=== PATIENT | female | born 1965 | race Caucasian/White ===

== ENCOUNTER 2019-09-24 01:01 | Day surgery (SDC) | payer OTHER, BC, SELFPAY ==
[2019-09-23 10:04] VITALS: BMI 21.2
--- NOTE | 2019-09-23 17:37 | WPDANESEPP ---
Anes - Eval Pre Procedure Procedure: Operation Date: 09/24/19 07:30 Proposed Procedures p Screening Colonoscopy - Pradeep Brar MD Date/Time: 09/23/19 17:37 Pre Op Diagnosis: neoplasm screening Patient Data Age: 54 Gender: F Height: 1.63 m Weight: 56 kg Allergies Allergy/AdvReac Type Severity Reaction Status Date / Time No Known Allergies Allergy NONE Unverified 09/23/19 10:03 Home Medications Medication Instructions Recorded Confirmed Type multivitamin [Daily Multiple] 1 tablet PO DAILY 09/23/19 09/23/19 History Patient hx anesthesia problems: none Family hx anesthesia problems: none PMFSH Past Medical History Medical History (Updated 08/22/19 @ 13:23 by Sherman Washington MD) Abnormal fasting glucose Bilateral carpal tunnel syndrome (~2007) Hx of migraine headaches Migraine headache Surgical History Surgical History (Updated 07/18/19 @ 13:33 by Cora Ceron MA) deliv NOS-unsp (~1994) deliv NOS-unsp (~1998) H/O: hysterectomy (~2015) Family History Family History (Updated 07/18/19 @ 13:35 by Cora Ceron MA) Mother Hypertension Father Liver cancer Grandparent Cerebrovascular accident Social History Social History (Updated 07/18/19 @ 13:40 by Cora Ceron MA) Smoking status: Never smoker Second hand tobacco smoke exposure: No Alcohol intake: current Substance use: never Substance use type: does not use Exam Day of Procedure 09/23/19 17:37
[2019-09-24 06:35] VITALS: BP 130/72; PULSE 69; RESP 16; TEMP 36.7; O2SAT 100
[2019-09-24] MEDS: LACTATED RINGERS 1,000 ML 150 ML IV CONT (06:45)
--- NOTE | 2019-09-24 07:03 | P.PNAN_ITS ---
Anes - Eval Final PreProcedure Day of Procedure 09/24/19 07:03 Patient weight: normal Heart: regular rate and rhythm Lungs: clear to auscultation Airway: Mallampati scale class 1 Neurological: alert and oriented Last oral intake: >/= 8 hours ASA classification: I Emergent: no Anesthetic plan: proceed Anesthesia type and monitoring: general GIVS and standard monitoring Informed Consent: The patient's anesthetic plan and its attendant risks and guerita efits were discussed with the patient/family/POA. Questions were solicited and answers provided to the satisfaction of the patient/family/POA.
--- NOTE | 2019-09-24 07:34 | PM.HPGS ---
History of Present Illness History of Present Illness Consent: Risks, benefits, and alternatives have been discussed and questions answered. Patient agrees to proceed with procedure. Chief complaint: neoplasm screening Narrative: Blanca Castro is a 54 year old female here for positive cologuard, never had a colonoscopy Review of Systems Constitutional: Constitutional: Denies headache(s) and Denies weakness Eyes: Eyes: Denies blurry vision ENT: Reports Normal hearing present, Denies headache(s) and Denies neck pain Cardiovascular: Cardiovascular: Denies chest pain and Denies dyspnea Respiratory: Respiratory: Denies dyspnea Gastrointestinal: Gastrointestinal: Reports no additional gastrointestinal complaints Genitourinary: Genitourinary: Denies dysuria Musculoskeletal: Musculoskeletal: Denies neck pain Integumentary/Breasts: Skin/Breast: Denies dry skin Neurologic: Reports Normal hearing present, Denies headache(s) and Denies weakness Psychiatric: Psychiatric: Denies anxiety Endocrine: Endocrine: Denies change in body appearance Hematologic/Lymphatic: Hematologic/Lymphatic: Denies easy bleeding Allergic/Immunologic: Allergic/Immunologic: Denies urticaria PMFSH Past Medical History Medical History (Updated 09/24/19 @ 07:35 by Pradeep Brar MD) Abnormal fasting glucose Bilateral carpal tunnel syndrome (~2007) Hx of migraine headaches Migraine headache Positive colorectal cancer screening using Cologuard test Surgical History Surgical History (Updated 07/18/19 @ 13:33 by Cora Ceron MA) deliv NOS-unsp (~1994) deliv NOS-unsp (~1998) H/O: hysterectomy (~2015) Family History Family History (Updated 07/18/19 @ 13:35 by Cora Ceron MA) Mother Hypertension Father Liver cancer Grandparent Cerebrovascular accident Social History Social History (Updated 07/18/19 @ 13:40 by Cora Ceron MA) Smoking status: Never smoker Second hand tobacco smoke exposure: No Alcohol intake: current Substance use: never Substance use type: does not use Meds Home Medications and Allergies Home Medications Medication Instructions Recorded Confirmed Type multivitamin [Daily Multiple] 1 tablet PO DAILY 09/23/19 09/24/19 History Allergies Allergy/AdvReac Type Severity Reaction Status Date / Time No Known Allergies Allergy NONE Unverified 09/24/19 06:34 Vital Signs Vital Signs - 24 hr 09/24/19 06:35 Temperature 98.0 F Pulse Rate 69 Respiratory Rate 16 Blood Pressure 130/72 Pulse Oximetry 100 Exam Const: General: comfortable and no acute distress HENMT: General nose exam: Normal nares present Eyes: General: appearance normal, both eyes and all related structures Neck: Neck: no JVD Resp: Auscultation: clear to auscultation bilaterally Cardio: Rate: regular rate Rhythm: regular rhythm GI: Inspection: non-distended GI Palp: Yes Soft to palpation Skin: General skin exam: normal color Neuro: General: gait normal Speech: normal speech Extrem: General: normal to inspection Psych: Mental Status: mental status grossly normal Assessment and Plan Assessment and plan (1) Positive colorectal cancer screening using Cologuard test: Code(s): R19.5 - Other fecal abnormalities Status: Acute Assessment and Plan: will proceed with colonoscopy
[2019-09-24 08:02] VITALS: BP 95/62; PULSE 73; RESP 16; O2SAT 100
[2019-09-24 08:12] VITALS: BP 98/64; PULSE 68; RESP 16; O2SAT 100
[2019-09-24 08:22] VITALS: BP 115/71; PULSE 66; RESP 16; O2SAT 100
== END 2019-09-24 08:43 | disposition home or self-care (01) ==
PROVIDERS: PCP Family Medicine; Visit Provider Internal Medicine Gastroenterology
PROC: 0DJD8ZZ Inspection of Lower Intestinal Tract, Via Natural or Artificial Opening Endoscopic (ICD-10-PCS; CPT 45378; principal; 2019-09-24 07:30)
DX: Z12.11 Encounter for screening for malignant neoplasm of colon (principal); R19.5 Other fecal abnormalities; K63.5 Polyp of colon; K64.8 Other hemorrhoids
CPT/HCPCS: 45380; 88305; J2704; J7120

== ENCOUNTER 2021-04-28 07:42 | Outpatient (CLI) | payer OTHER, SELFPAY ==
--- NOTE | ~2021-04-28 | DEXA_ITS ---
Bone Density Report Name: Blanca Castro Age: 55 Sex: Female Ethnicity: White Date of : 1965 Indication: postmenopausal; height loss; hysterectomy; Referring Provider: eRbeka Porter Study: Bone densitometry was performed. Exam Date: April 28, 2021 Accession number: [id number] Bone Density: Region BMD T-score Z-score Classification AP Spine (L1-L4) 0.781 -2.4 -1.4 Osteopenia Femoral Neck (Left) 0.709 -1.3 -0.3 Osteopenia Total Hip (Left) 0.827 -0.9 -0.3 Normal Total Hip Bilateral Avg 0.826 -0.9 -0.4 Normal Femoral Neck (Right) 0.696 -1.4 -0.4 Osteopenia Total Hip (Right) 0.823 -1.0 -0.4 Normal World Health Organization criteria for BMD impression classify patients as: Normal (T-score at or above -1.0), Osteopenia (T-score between -1.0 and -2.5), or Osteoporosis (T-score at or below -2.5). 10-year Fracture Risk(1): Major Osteoporotic Fracture 5.8% Hip Fracture 0.4% Reported Risk Factors: [place] (), Neck BMD=0.696, BMI=24.5 (1) FRAX(R) Version 3.08. Fracture probability calculated for an untreated patient. Fracture probability may be lower if the patient has received treatment. Clinical Information Provided by Patient: Has used the following medications: Calcium Has the following medical conditions: Hysterectomy Patient maximum height was 64 Menopause Age: 50 Drinks caffeinated beverages Onset of menses at age 14 Number of children 2 Impression: The patient has low bone mass, based on the Total Spine T-score. The patient has an estimated ten-year risk of hip fracture of 0.4% and an estimated ten-year risk of major fracture of 5.8%, based on the WHO FRAX algorithm. Discussion: BONE DENSITY IS LOW AT ONE OR MORE SKELETAL SITES. This patient's lowest T-score is low at one or more skeletal sites. It meets the World Health Organization's (WHO) criteria for ?low bone mass? (T-score between -1.0 and -2.5). The patient's 10-year risk of fracture as calculated by FRAX is less than the threshold where pharmacological therapy is recommended by the National Osteoporosis Foundation (NOF). However, all treatment decisions require clinical judgment and consideration of individual patient factors, including patient preferences, comorbidities, previous drug use, risk factors not captured in the FRAX model (e.g., frailty, falls, vitamin D deficiency, increased bone turnover, interval significant decline in bone density) and possible under or overestimation of fracture risk by FRAX. The patient should follow a healthful lifestyle (good nutrition with adequate calcium and vitamin D, and appropriate weight-bearing exercise). Follow-Up: Consider repeating this study in 2 to 3 years to reassess this patient's status, or sooner if there is some new clinical indication. Reported by: AHMET on 04/28/2021 8:14
--- NOTE | ~2021-04-28 | MM_ITS ---
EXAMINATION: MM scrn camron implant BI w john HISTORY: Screening mammogram TECHNIQUE: Craniocaudal and mediolateral oblique 3-D tomosynthesis images with implant displacement a nd synthetic 2-D images were generated. Craniocaudal and mediolateral oblique views of the breasts wi thout implant displacement were obtained using full field digital mammography. CAD analysis was submi tted and interpreted. COMPARISON: Comparison to multiple prior studies sequentially, with oldest reviewed study dated 04/10. BREAST PARENCHYMAL COMPOSITION: There are scattered areas of fibroglandular density. FINDINGS: There is no evidence of suspicious mass, calcification, or architectural distortion to sugg est malignancy in either breast. There has been no suspicious interval change. IMPRESSION: 1. No mammographic evidence of malignancy. 2. Recommend routine screening mammography in one year. BI-RADS Category 1: Negative Reviewed, dictated and finalized at location A.
== END 2021-04-28 07:43 | disposition home or self-care (01) ==
LOC: ANHIMG 07:44
PROVIDERS: PCP Family Medicine; Visit Provider Student in an Organized Health Care Education/Training Program
DX: Z12.31 Encounter for screening mammogram for malignant neoplasm of breast (principal); Z78.0 Asymptomatic menopausal state; Z13.820 Encounter for screening for osteoporosis; M85.88 Other specified disorders of bone density and structure, other site; M85.852 Other specified disorders of bone density and structure, left thigh; M85.851 Other specified disorders of bone density and structure, right thigh
CPT/HCPCS: 77063; 77067; 77080

== ENCOUNTER 2022-07-18 07:34 | Outpatient (CLI) | payer OTHER, SELFPAY ==
--- NOTE | ~2022-07-18 | MM_ITS ---
EXAMINATION: MM scrn camron implant BI w john HISTORY: Screening mammogram TECHNIQUE: Craniocaudal and mediolateral oblique 3-D tomosynthesis images with implant displacement a nd synthetic 2-D images were generated. Craniocaudal and mediolateral oblique views of the breasts wi thout implant displacement were obtained using full field digital mammography. CAD analysis was submi tted and interpreted. COMPARISON: 04/28/2021, 06-29, 03/04/2015 BREAST PARENCHYMAL COMPOSITION: The breasts are heterogeneously dense, which may obscure small masses . FINDINGS: There is no evidence of suspicious mass, calcification, or architectural distortion to sugg est malignancy in either breast. There has been no suspicious interval change. IMPRESSION: 1. No mammographic evidence of malignancy. 2. Recommend routine screening mammography in one year. BI-RADS Category 1: Negative Reviewed, dictated and finalized at location A. PRODUCTION ARTIST
== END 2022-07-18 07:35 | disposition home or self-care (01) ==
PROVIDERS: PCP Family Medicine; Visit Provider Student in an Organized Health Care Education/Training Program
DX: Z12.31 Encounter for screening mammogram for malignant neoplasm of breast (principal)
CPT/HCPCS: 77063; 77067

== ENCOUNTER 2022-10-20 11:45 | Emergency (ER) | payer OTHER, SELFPAY ==
--- NOTE | ~2022-10-20 | XR_ITS ---
EXAMINATION: XR foot RT min 3V DATE: 10/20/2022 12:17 INDICATION: Right foot injury and pain. TECHNIQUE: 4 views of right foot were obtained. COMPARISON: None. FINDINGS: Bone alignment is normal. No fracture. There is mild osteoarthritis of first metatarsophala ngeal joint and first interphalangeal joint. There is an enthesophyte at posterior aspect of calcanea l tuberosity. IMPRESSION: 1. Mild polyarticular osteoarthritis. Reviewed, dictated and finalized at location A. ER MACHINE TENDER
--- NOTE | ~2022-10-20 | XR_ITS ---
EXAMINATION: XR ankle RT min 3V DATE: 10/20/2022 12:17 INDICATION: Right ankle injury and pain. TECHNIQUE: 4 views of right ankle were obtained. COMPARISON: None. FINDINGS: Bone alignment is normal. No fracture. There is an osteochondral lesion of medial talar dom e. There is an enthesophyte at posterior aspect of calcaneal tuberosity. IMPRESSION: 1. Osteochondral lesion of medial talar dome. Reviewed, dictated and finalized at location A. STANT FRONT END MANAGER
--- NOTE | 2022-10-20 11:48 | ED.LOWEXIN ---
HPI - Extremity Injury (Lower) General Chief Complaint: Extremity Injury, Lower Stated Complaint: rt foot injury Time Seen by Provider: 10/20/22 11:48 Source: patient and RN notes reviewed History of Present Illness HPI Narrative: Patient is a 57-year-old female who presents to the Urgent Care with complaints of right foot injury. Patient states she was walking her dog and rolled her right foot/ankle. No other acute complaints or injuries. Patient states that she is concerned because she works and management at a retail store. No other acute complaints. Patient aware of the plan of care. Some parts of this dictation were generated by voice recognition software and may contain typographical and/or grammatical inaccuracies. Related Data Home Medications Medication Instructions Recorded Confirmed multivitamin (Daily Multiple 1 tablet PO DAILY 09/23/19 05/16/22 tablet) calcium carbonate 500 mg calcium 500 mg PO DAILY 06/17/21 05/16/22 (1,250 mg) chewable tablet (Calcium 500) cholecalciferol (vitamin D3) 25 1,000 unit PO DAILY 05/16/22 05/16/22 mcg (1,000 unit) capsule cyanocobalamin (vitamin B-12) 1,000 mcg PO DAILY 05/22/22 1,000 mcg tablet Allergies Allergy/AdvReac Type Severity Reaction Status Date / Time No Known Allergies Allergy NONE Verified 10/20/22 12:03 Review of Systems Review of Systems: CONSTITUTIONAL: Denies fever, chills, or sweats. EYES: Denies visual changes, redness, or discharge. ENT: Denies rhinorrhea, congestion, sore throat, or otalgia. CARDIOVASCULAR: Denies chest pain, palpitations, or edema. RESPIRATORY: Denies cough or dyspnea. GASTROINTESTINAL: Denies abdominal pain, nausea, vomiting, or diarrhea. GENITOURINARY: Denies dysuria or hematuria. SKIN: Denies rash or itching. MUSCULOSKELETAL: Reports of right foot/ankle pain and swelling he NEUROLOGIC: Denies headache, numbness, or weakness. All other systems reviewed are negative, except as documented in HPI. [facility] Past Medical History Medical History (Updated 10/20/22 @ 12:37 by EDWARDO Sesay) Abnormal fasting glucose blood sugar 96 05/20/2022. Acute conjunctivitis Benign paroxysmal positional vertigo due to bilateral vestibular disorder Bilateral carpal tunnel syndrome (~2007) BMI 24.0-24.9, adult Hx of migraine headaches Iritis (~08/29/22) 2nd episode of iritis OS noted on 08/29/2022. Consideration for SLE. Migraine headache Normal colonoscopy Palpable lymph node Polyp of colon (09/24/19) 3 mm benign polyp 09/24/2019 with recheck in 5 years. Positive colorectal cancer screening using Cologuard test Seasonal allergic rhinitis Vitamin B12 deficiency (05/20/22) level low at 252 with goal greater than 400 with hemoglobin 12.4 on 05/20/2022. Surgical History Surgical History deliv NOS-unsp (~1994) deliv NOS-unsp (~1998) History of hysterectomy, supracervical 2016 Family History Family History Mother Hypertension Father Liver cancer Grandparent Cerebrovascular accident Social History Social History Smoking status: Never smoker Second hand tobacco smoke exposure: No Alcohol intake: current Alcohol use details: wine less than once a montrh Substance use: never Substance use type: does not use Living arrangements: with family Comments At the time of my signature, I reviewed and agree with the nursing past medical, surgical, social, and family history. There is no relevant family history pertinent to the patient complaint. Exam Narrative: GENERAL: This is a well-nourished, well-developed patient, in no apparent distress. HEAD: normocephalic, atraumatic. EYES: PERRL. Sclera clear/white. Vision is grossly intact. EARS: External ears normal NOSE: External nose normal with
[2022-10-20 12:04] VITALS: BP 135/87; PULSE 76; RESP 16; TEMP 36.7; O2SAT 100
== END 2022-10-20 12:51 | disposition home or self-care (01) ==
PROVIDERS: Emergency Provider Nurse Practitioner Family; PCP Family Medicine
DX: S93.401A Sprain of unspecified ligament of right ankle, initial encounter (principal); S96.911A Strain of unspecified muscle and tendon at ankle and foot level, right foot, initial encounter; X50.9XXA Other and unspecified overexertion or strenuous movements or postures, initial encounter; Y93.K1 Activity, walking an animal; S93.601A Unspecified sprain of right foot, initial encounter; E53.8 Deficiency of other specified B group vitamins
CPT/HCPCS: 73610; 73630; 99214; G0463

== ENCOUNTER → 2023-05-24 11:30 | Outpatient (CLI) | payer OTHER, SELFPAY ==
--- NOTE | ~2023-05-24 | XR_ITS ---
Clinical Indication: Iridocyclitis PA and lateral views of the chest: Comparison: 05/20/2015 Findings: The lungs are clear, without evidence of focal consolidation or pleural effusion. Cardiome diastinal silhouette is within normal limits. Relative kyphosis is unchanged. Impression: Clear lungs. Reviewed, dictated and finalized at location . Impression: Clear lungs.
== END ==
PROVIDERS: PCP Family Medicine; Visit Provider Ophthalmology
DX: H20.9 Unspecified iridocyclitis (principal)
CPT/HCPCS: 71046

== ENCOUNTER 2024-05-29 15:00 | Outpatient (CLI) | payer OTHER, SELFPAY ==
--- NOTE | ~2024-05-29 | MM_ITS ---
EXAMINATION: MM scrn camron implant BI w john HISTORY: Screening mammogram TECHNIQUE: Craniocaudal and mediolateral oblique 3-D tomosynthesis images with implant displacement a nd synthetic 2-D images were generated. Craniocaudal and mediolateral oblique views of the breasts wi thout implant displacement were obtained using full field digital mammography. CAD analysis was submi tted and interpreted. COMPARISON: Comparison to multiple prior studies sequentially, with oldest reviewed study dated 03/04. BREAST PARENCHYMAL COMPOSITION: Not dense: There are scattered areas of fibroglandular density. FINDINGS: There is no evidence of suspicious mass, calcification, or architectural distortion to sugg est malignancy in either breast. There has been no suspicious interval change. IMPRESSION: 1. No mammographic evidence of malignancy. 2. Recommend routine screening mammography in one year. BI-RADS Category 1: Negative Reviewed, dictated and finalized at location B.
== END 2024-05-29 15:01 | disposition home or self-care (01) ==
LOC: ANHIMG 15:01
PROVIDERS: PCP Family Medicine; Visit Provider Registered Nurse
DX: Z12.31 Encounter for screening mammogram for malignant neoplasm of breast (principal)
CPT/HCPCS: 77062; 77063; 77066; 77067; G0279

== ENCOUNTER 2024-07-21 16:13 | Emergency (ER) | payer OTHER, SELFPAY ==
--- NOTE | ~2024-07-21 | XR_ITS ---
[id number] DATE: 07/21/2024 16:54 INDICATION: Posterior right rib pain after fall TECHNIQUE: PA chest. 2 additional views of right ribs. COMPARISON: None FINDINGS: No right rib fracture is evident. Normal heart size. No hilar or mediastinal enlargement. The lungs are clear. No pleural effusion or pulmonary vascular congestion or pneumothorax. Peripherally calcified right breast implant is noted. IMPRESSION: No detected right rib fracture No active cardiopulmonary disease Reviewed, dictated and finalized at [facility]. Reviewed, dictated and finalized at [facility]. [facility] [employer] [facility]
[2024-07-21 16:28] VITALS: BP 126/70; PULSE 80; RESP 16; TEMP 37.4; O2SAT 100
--- NOTE | 2024-07-21 16:37 | ED.BACK ---
HPI - Back Pain/Injury General Chief Complaint: Back Pain/Injury Stated Complaint: Rib Pain Time Seen by Provider: 07/21/24 16:38 Source: patient Mode of arrival: ambulatory Limitations: no limitations History of Present Illness HPI Narrative: 58 y/o female presented for c/o right mid back/rib pain after injury 3 nights ago. States she tripped over a dog gate and fell back hitting the ribs on the foot part of a recliner. Endorses a pain/spasm sensation to lower ribs when taking deep breaths. Denies chest pain, palpitations, sob, wheezing or hemoptysis. Rates pain 03/23. Related Data Home Medications Medication Instructions Recorded Confirmed multivitamin (Daily Multiple 1 tablet PO DAILY 09/23/19 10/20/22 tablet) calcium carbonate (Calcium 500) 500 mg PO DAILY 06/17/21 10/20/22 cholecalciferol (vitamin D3) 25 1,000 unit PO DAILY 05/16/22 10/20/22 mcg (1,000 unit) capsule cyanocobalamin (vitamin B-12) 1,000 mcg PO DAILY 05/22/22 10/20/22 1,000 mcg tablet Allergies Allergy/AdvReac Type Severity Reaction Status Date / Time No Known Allergies Allergy NONE Verified 07/21/24 16:31 Review of Systems Review of Systems: CONSTITUTIONAL: Denies body aches, fever, chills, or sweats. CARDIOVASCULAR: Denies chest pain, palpitations, or edema. RESPIRATORY: denies cough, sob, wheezing. GASTROINTESTINAL: Denies abdominal pain, nausea, vomiting, or diarrhea. GENITOURINARY: Denies dysuria or hematuria. SKIN: Denies rash, itching, or wounds. MUSCULOSKELETAL: reports right rib/back pain NEUROLOGIC: Denies headache, numbness, tingling, or weakness. All systems reviewed & are unremarkable except as noted in HPI and below [facility] Past Medical History Medical History Abnormal fasting glucose blood sugar 96 05/20/2022. Acute conjunctivitis Benign paroxysmal positional vertigo due to bilateral vestibular disorder Bilateral carpal tunnel syndrome (~2007) BMI 24.0-24.9, adult Breast cancer screening by mammogram normal mammogram 05/29/2024. Hx of migraine headaches Iritis (~08/29/22) 2nd episode of iritis OS noted on 08/29/2022. Consideration for SLE. Migraine headache Normal colonoscopy Palpable lymph node Polyp of colon (09/24/19) 3 mm benign polyp 09/24/2019 with recheck in 5 years. Positive colorectal cancer screening using Cologuard test Seasonal allergic rhinitis Vitamin B12 deficiency (05/20/22) level low at 252 with goal greater than 400 with hemoglobin 12.4 on 05/20/2022. Surgical History Surgical History deliv NOS-unsp (~1994) deliv NOS-unsp (~1998) History of hysterectomy, supracervical 2016 Family History Family History Mother Hypertension Father Liver cancer Grandparent Cerebrovascular accident Social History Social History Smoking status: Never smoker Second hand tobacco smoke exposure: No Alcohol intake: current Alcohol use details: wine less than once a montrh Substance use: never Substance use type: does not use Do You Feel Safe in your Home?: Yes Lack of Transportation: No Lack of Food: Never True Current Housing: I Have Housing Concerned About Future Housing: No Difficulty Paying Gas/Electric Bills: No Difficulty Paying for Meds: No Currently Unemployed: No Education: High School Diploma/GED Difficulty w/ Childcare or Family Care: No Living arrangements: with family Comments At time of signature, I have reviewed and agree with nursing past medical, surgical, social and family history unless otherwise noted. Please see nursing chart for further information. There is no relevant family history pertinent to the presenting complaint Exam Narrative: GENERAL: Well-appearing, in no acute distress. EYES: EOMI. No redness or drainage. Conjunctivae normal. right lower eye bruising no swelling. ENT: Mucous membranes pink and moist. No rhinorrhea. CHEST: No respiratory distress. Lungs clear to all adkins. HEART: Regular rate and rhythm. No murmur appreciated. MUSC: Right lateral rib bruising and tender with palpation to the 5th-6th area. SKIN: Warm, dry, no rash. Capillary refill normal. Normal skin turgor. NEURO: Alert and oriented x3. Gait steady. Course Course Emergency Course: Patient is aware of diagnosis, understands and agrees to treatment plan. Anticipatory guidance given. Patient agrees to follow-up as directed and is aware of reasons to seek care at the emergency department. Portions of this record may have been created with voice recognition software Level of Care: Express Care Visit Vital Signs Vital signs: Vital Signs Temperature 99.3 F 07/21/24 16:28 Pulse Rate 80 07/21/24 16:28 Respiratory Rate 16 07/21/24 16:28 Blood Pressure 126/70 07/21/24 16:28 Pulse Oximetry 100 07/21/24 16:28 Temperature 99.3 F 07/21/24 16:28 Pulse Rate 80 07/21/24 16:28 Respiratory Rate 16 07/21/24 16:28 Blood Pressure 126/70 07/21/24 16:28 Pulse Oximetry 100 07/21/24 16:28 MDM - Back Pain/Injury MDM Narrative Medical decision making narrative: Discussed physical exam findings and rib xray. Advised supportive measures and signs/symptoms to go to the ER. Pt is appropriate for outpt treatment and f/u. Differential Diagnosis Differential diagnosis: Likely other (Rib fracture, contusion) Imaging Data Radiologist's impression: Patient: Blanca Castro : 1965 MR#: [id number] Age: 58 Acct:[id number] Loc: [id number] ADM Date: 07/21/24Attending Dr: Ordering Physician: Sheryl Ordonez APRN Date of Service: 07/21/24 Procedure(s): XR ribs RT w PA CXR Accession Number(s): [id number] cc: Sheryl Ordonez APRN; Sherman Washington MD~ [id number] DATE: 07/21/2024 16:54 INDICATION: Posterior right rib pain after fall TECHNIQUE: PA chest. 2 additional views of right ribs. COMPARISON: None FINDINGS: No right rib fracture is evident. Normal heart size. No hilar or mediastinal enlargement. The lungs are clear. No pleural effusion or pulmonary vascular congestion or pneumothorax. Peripherally calcified right breast implant is noted. IMPRESSION: No detected right rib fracture No active cardiopulmonary disease Discharge Plan Discharge Clinical Impression: Contusion of rib on right side Qualifiers: Encounter type: initial encounter Qualified Code(s): S20.211A - Contusion of right front wall of thorax, initial encounter Patient Disposition: Home, Self-Care Condition: Stable Instructions: Antibiotic Form, Rib Contusion (ED) Additional Instructions: Rest. Avoid pushing, pulling, lifting or anything that worsens the symptoms Tylenol 1000mg every 8 hours as needed You can alternate with ibuprofen 600mg Alternate ice/heat to the site. Lidocaine or salon pas pain patch or use pain cream like icy/hot or biofreeze. Follow up with your primary care provider as needed in 1 week Go to the ER for worsening symptoms or concerns Prescriptions: New ibuprofen 800 mg tablet 800 mg PO TID PRN (Reason: pain) Qty: 15 0RF No Action calcium carbonate [Calcium 500] 500 mg calcium (1,250 mg) tablet,chewable 500 mg PO DAILY cholecalciferol (vitamin D3) 25 mcg (1,000 unit) capsule 1,000 unit PO DAILY multivitamin [Daily Multiple] Tablet 1 tablet PO DAILY cyanocobalamin (vitamin B-12) 1,000 mcg tablet 1,000 mcg PO DAILY Follow-up/Referrals: Sherman Washington MD [Primary Care Provider] - Time of Disposition: 17:26
== END 2024-07-21 17:28 | disposition home or self-care (01) ==
PROVIDERS: Emergency Provider Nurse Practitioner Family; PCP Family Medicine
DX: S20.211A Contusion of right front wall of thorax, initial encounter (principal); W18.09XA Striking against other object with subsequent fall, initial encounter; E53.8 Deficiency of other specified B group vitamins
CPT/HCPCS: 71101; 99213; G0463

== ENCOUNTER 2025-01-23 08:31 | Outpatient (CLI) | payer OTHER, SELFPAY | END 2025-01-23 08:32 | disposition home or self-care (01) | LOC: GOSHIMG 08:32 | PROVIDERS: PCP Family Medicine; Visit Provider Family Medicine | DX: M25.561 Pain in right knee (principal) | CPT/HCPCS: 73562 ==